=== PATIENT | male | born 1965 | race Caucasian/White ===

== ENCOUNTER 2020-07-12 18:17 | Inpatient (IN) | payer OTHER ==
--- NOTE | 2020-07-12 20:42 | BHS.RME ---
Substance Use & Tx History - Last Treatment Date of last treatment: 2 MONTHS AGO Treatment type: Substance Use Disorder (FIDE)
--- NOTE | 2020-07-12 20:48 | HP ---
CIWA Score Nausea/Vomitin Muscle Tremors: 3 Anxiety: 2 Agitation: 1-Slight > Activity Paroxysmal Sweats: 2 Orientation: 0-Oriented Tacttile Disturbances: 2-Mild Itch/Numbness/Burn Auditory Disturbances: 2-Mild Harshness/Frighten Visual Disturbances: 2-Mild Sensitivity Headache: 2-Mild CIWA-Ar Total Score: 18 - Admission Criteria OASAS Guidelines: Admission for Medically Managed Detox: Requires at least one of the followin. CIWA greater than 12 2. Seizures within the past 24 hours 3. Delirium tremens within the past 24 hours 4. Hallucinations within the past 24 hours 5. Acute intervention needed for co occurring medical disorder 6. Acute intervention needed for co occurring psychiatric disorder 7. Severe withdrawal that cannot be handled at a lower level of care (continued vomiting, continued diarrhea, abnormal vital signs) requiring intravenous medication and/or fluids 8. Admitting History and Physical - Admission Chief Complaint: ETOH DEPENDENCE History of Present Illness: THE PT. IS REQUESTING ADMISSION TO THE DETOX UNIT AND CAME FOR H AND PE History Source: Patient Limitations to Obtaining History: No Limitations - Past Medical History [employer]: Yes: Seizure Psych: Yes: Anxiety - Past Surgical History Additional Past Surgical History: SURGERY ON THE PROSTATE IN 2019 - Smoking History Smoking history: Current every day smoker Have you smoked in the past 12 months: Yes - Alcohol/Substance Use Hx Alcohol Use: Yes History of Substance Use: reports: None Date of Last Use: 07/12/20 - Social History Usual Living Arrangement: Yes: With Spouse History of Recent Travel: No Admission ROS BHS - HPI Chief Complaint: DEPENDENT ON ETOH ONLY ON 90 MGS. OF MMTP - LAST DOSE THIS AM Allergies/Adverse Reactions: Allergies Allergy/AdvReac Type Severity Reaction Status Date / Time No Known Allergies Allergy Verified 07/12/20 20:50 History of Present Illness: THE PT. IS REQUESTING ADMISSION TO THE DETOX UNIT AND CAME FOR H AND PE Exam Limitations: No Limitations - Ebola screening Have you traveled outside of the country in the last 21 days: No Have you had contact with anyone from an Ebola affected area: No Have you been sick,other than usual withdrawal symptoms: No Do you have a fever: No - Review of Systems Constitutional: See HPI, Malaise, Weakness EENT: reports: See HPI Respiratory: reports: No Symptoms reported, See HPI Cardiac: reports: No Symptoms Reported, See HPI GI: reports: See HPI, Nausea, Abdominal cramping : reports: See HPI Musculoskeletal: reports: See HPI, Muscle Pain, Muscle Weakness Integumentary: reports: See HPI, Lesions, Pruritus, Rash, Sweating Neuro: reports: See HPI, Headache, Pre-Existing Deficit, Tremors, Weakness Endocrine: reports: See HPI Hematology: reports: See HPI Psychiatric: reports: Judgement Intact, Orientated x3, Anxious, Depressed Other Systems: Reviewed and Negative Patient History - Patient Medical History Hx Seizures: Yes (X 4 - WITHDRAWAL SEIZURES) Hx Human Immunodeficiency Virus (HIV): No Hx Hepatitis C: No Other Medical History: ANXIETY DISORDER - Patient Surgical History Hx Genitourinary Surgery: Yes (ON THE PROSTATE IN 2019) - Smoking Cessation Smoking history: Current every day smoker Have you smoked in the past 12 months: Yes Aproximately how many cigarettes per day: 10 Hx Chewing Tobacco Use: No Initiated information on smoking cessation: Yes 'Breaking Loose' booklet given: 07/12/20 - Substance & Tx. History Hx Alcohol Use: Yes Hx Substance Use: No Substance Use Type: Alcohol Hx Substance Use Treatment: Yes - Substances abused Alcohol Substance route: Oral Frequency: Daily Amount used: 24 OZS. X 8 OF BEER AND LIQUOR 1 P/D Age of first use: 13 Date of last use: 07/12/20 Admission Physical Exam [facility] - Physical General Appearance: Yes: No Apparent Distress, Alcohol on Breath, Tremorous, Sweating, Anxious HEENTM: Yes: Hearing grossly Normal, Normocephalic, Normal Voice, THOMAS, Pharynx Normal Respiratory: Yes: Chest Non-Tender, Lungs Clear, Normal Breath Sounds, No Respiratory Distress, No Accessory Muscle Use Neck: Yes: No masses,lesions,Nodules, Supple, Trachea in good position Breast: Yes: Breast Exam Deferred, Axillae without masses Cardiology: Yes: Regular Rhythm, S1, S2, Tachycardia Abdominal: Yes: Normal Bowel Sounds, Non Tender, Soft, Protuberent Back: Yes: Normal Inspection, Decreased Range of Motion Musculoskeletal: Yes: full range of Motion, Gait Steady, Pelvis Stable, Muscle Pain, Muscle weakness Extremities: Yes: Normal Capillary Refill, Normal Range of Motion, Non-Tender, Tremors, Pedal Edema, Swelling 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 ECZEMA ON UPPER LIMBS++ - Diagnostic (1) EtOH dependence Current Visit: Yes Status: Chronic Qualifiers: Substance use status: uncomplicated Qualified Code(s): F10.20 - Alcohol dependence, uncomplicated (2) Nicotine dependence Current Visit: Yes Status: Chronic (3) Anxiety disorder Current Visit: Yes Status: Chronic Qualifiers: Anxiety disorder type: generalized anxiety disorder Qualified Code(s): F41.1 - Generalized anxiety disorder (4) Eczema Current Visit: Yes Status: Chronic Qualifiers: Eczema type: unspecified Qualified Code(s): L30.9 - Dermatitis, unspecified Cleared for Admission S - Detox or Rehab [facility] Level of Care: Medically Managed Detox Regimen/Protocol: Librium Inpatient Rehab Admission - Rehab Decision to Admit Inpatient rehab admission?: No
[2020-07-12] MEDS ORDERED: ONDANSETRON *ODT* 4 MG TABLET SL PRN (21:04)
[2020-07-12] MEDS ORDERED: MAGNESIUM CITRATE 300 ML BOTTLE PO PRN (21:04)
[2020-07-12] MEDS ORDERED: ACETAMINOPHEN 325 MG TABLET (FP) PO PRN ×2 (21:04)
[2020-07-12] MEDS ORDERED: IBUPROFEN 400 MG TABLET (FP) PO PRN (21:04)
[2020-07-12] MEDS ORDERED: BISMUTH SUBSALICYLATE 524 MG/30 ML UD PO PRN (21:04)
[2020-07-12] MEDS ORDERED: MAG HYDROX/AL HYDROX/SIMETH 30 ML UNIT-DOSE CUP PO PRN (21:04)
[2020-07-12] MEDS ORDERED: chlordiazePOXIDE HCL 25 MG CAPSULE PO PRN (21:04)
[2020-07-12] MEDS ORDERED: NICOTINE POLACRILEX 2 MG GUM BUC PRN (21:04)
[2020-07-12] MEDS ORDERED: MAGNESIUM HYDROX 2400MG/30ML ORAL SUSPENSION 30 ML CUP PO PRN (21:04)
[2020-07-12] MEDS ORDERED: METHOCARBAMOL 500 MG TABLET PO PRN (21:04)
[2020-07-12] MEDS ORDERED: MENTHOL/PHENOL 1 EACH UD MM PRN (21:04)
[2020-07-12] MEDS ORDERED: chlordiazePOXIDE HCL 25 MG CAPSULE PO ONE (22:00)
[2020-07-12] MEDS: GABAPENTIN 300 MG CAPSULE PO SCH (23:18)
[2020-07-12] MEDS: chlordiazePOXIDE HCL 25 MG CAPSULE PO SCH ×2 (23:18→23:37)
[2020-07-12] MEDS: MELATONIN 5 MG TABLETS PO SCH (23:19)
[2020-07-12] MEDS: hydrOXYzine PAMOATE 25 MG CAPSULE (FP) PO SCH (23:19)
[2020-07-12] MEDS: THIAMINE HCL 100 MG TABLET (FP) PO SCH (23:19)
[2020-07-12] MEDS: HYDROCORTISONE 2.5% TOPICAL CREAM 30 GM TUBE TP SCH (23:37)
[2020-07-13] MEDS: GABAPENTIN 300 MG CAPSULE PO SCH ×3 (06:35→22:03)
[2020-07-13] MEDS: chlordiazePOXIDE HCL 25 MG CAPSULE PO SCH ×4 (06:35→22:03)
[2020-07-13] MEDS: hydrOXYzine PAMOATE 25 MG CAPSULE (FP) PO SCH ×5 (06:35→22:03)
[2020-07-13] MEDS ORDERED: METHADONE HCL 10 MG TABLET PO ONE (07:34)
[2020-07-13] MEDS ORDERED: METHADONE HCL 10 MG TABLET ONE (07:57)
[2020-07-13] MEDS ORDERED: METHADONE HCL 40 MG DISPERSABLE TABLET ONE (07:58)
[2020-07-13] MEDS ORDERED: METHADONE 80 MG, METHADONE 10 MG PO ONE (08:00)
[2020-07-13] MEDS ORDERED: NICOTINE 7 MG/24 HOURS TOPICAL PATCH TD SCH (10:00)
[2020-07-13] MEDS: HYDROCORTISONE 2.5% TOPICAL CREAM 30 GM TUBE TP SCH ×2 (10:18→22:02)
[2020-07-13] MEDS: PRENATAL VITAMINS W/ FOLIC ACID TABLET (FP) PO SCH (10:19)
[2020-07-13] MEDS: NICOTINE 14 MG/24 HOURS TOPICAL PATCH TD SCH (10:19)
[2020-07-13 11:57] LABS: HEMATOCRIT 40.5 % (35.4-49); MCH 29.4 pg (25.7-33.7); MCHC 32.2 g/dl (32.0-35.9); MEAN CELL VOLUME 91.4 fl (80-96); MEAN PLT VOLUME 9.7 fl (7.5-11.1); PLATELET COUNT 139 K/MM3 (134-434); RBC 4.43 M/mm3 (4.00-5.60); RDW 15.5 % (11.9-15.9); WHITE BLOOD COUNT 4.9 K/mm3 (4.0-10.0)
[2020-07-13 12:12] LABS: BILIRUBIN,TOTAL 0.8 mg/dL (0.2-1); BLOOD UREA NITROGEN 11.6 mg/dL (7-18); CALCIUM 8.5 mg/dL (8.5-10.1); CREATININE 0.5 mg/dL (0.55-1.3); POTASSIUM 3.3 mmol/L (3.5-5.1); TOT PROT 6.3 g/dl (6.4-8.2)
[2020-07-13] MEDS ORDERED: MASKS NR ONE (12:54)
--- NOTE | 2020-07-13 14:11 | PN ---
S CIWA - CIWA Score Nausea/Vomitin-Mild Nausea/No Vomiting Muscle Tremors: 4-Moderate,w/Arms Extend Anxiety: 3 Agitation: 1-Slight > Activity Paroxysmal Sweats: 1-Minimal Palms Moist Orientation: 0-Oriented Tacttile Disturbances: 0-None Auditory Disturbances: 0-None Visual Disturbances: 1-Very Mild Sensitivity Headache: 2-Mild CIWA-Ar Total Score: 13 BHS Progress Note (SOAP) Subjective: 54 years old male was admitted on 07/12/20 for alcohol withdrawal sx management treating with librium detox regiment received methadone 90mg po today feels ok ate breakfast in room social with peers in day room Objective: 07/13/20 14:08 Vital Signs - 24 hr 07/12/20 07/12/20 07/13/20 21:59 22:48 06:37 Temperature 97.1 F L 97.3 F L 976.7 F H Pulse Rate 125 H 114 H 81 Respiratory 19 18 18 Rate Blood Pressure 174/97 H 169/77 161/91 O2 Sat by Pulse 97 99 95 Oximetry (%) 07/13/20 07/13/20 08:42 12:35 Temperature 98.2 F 96.8 F L Pulse Rate 86 93 H Respiratory 18 18 Rate Blood Pressure 136/82 138/85 O2 Sat by Pulse 97 Oximetry (%) 07/13/20 14:10 Laboratory Tests 07/13/20 07/13/20 07/13/20 07:30 07:30 07:30 WBC 4.9 RBC 4.43 Hgb 13.0 Hct 40.5 MCV 91.4 MCH 29.4 MCHC 32.2 RDW 15.5 Plt Count 139 MPV 9.7 Sodium 141 Potassium 3.3 L Chloride 103 Carbon Dioxide 30 Anion Gap 8 BUN 11.6 Creatinine 0.5 L Est GFR (CKD-EPI)AfAm 141.39 Est GFR (CKD-EPI)NonAf 122.00 Random Glucose 79 Calcium 8.5 Total Bilirubin 0.8 AST 23 ALT 32 Alkaline Phosphatase 108 Total Protein 6.3 L Albumin 3.0 L Syphilis Serology Non-reactive bp elevation initiate clonidine 0.1 mg po q6h prn Assessment: 07/13/20 14:11 alcohol withdrawal Plan: librium regiment
[2020-07-13] MEDS: cloNIDine HCL 0.1 MG TABLET PO PRN (17:15)
[2020-07-13] MEDS ORDERED: cloNIDine HCL 0.1 MG TABLET PO ONE (20:26)
[2020-07-13] MEDS: THIAMINE HCL 100 MG TABLET (FP) PO SCH (22:03)
[2020-07-13] MEDS: MELATONIN 5 MG TABLETS PO SCH (22:03)
[2020-07-14] MEDS: GABAPENTIN 300 MG CAPSULE PO SCH ×3 (05:31→22:10)
[2020-07-14] MEDS: hydrOXYzine PAMOATE 25 MG CAPSULE (FP) PO SCH ×5 (05:31→22:10)
[2020-07-14] MEDS: chlordiazePOXIDE HCL 25 MG CAPSULE PO SCH ×4 (05:31→22:10)
[2020-07-14] MEDS ORDERED: METHADONE 80 MG, METHADONE 10 MG PO ONE (09:15)
[2020-07-14] MEDS ORDERED: METHADONE HCL 40 MG DISPERSABLE TABLET ONE (09:24)
[2020-07-14] MEDS ORDERED: METHADONE HCL 10 MG TABLET ONE (09:24)
[2020-07-14] MEDS: NICOTINE 14 MG/24 HOURS TOPICAL PATCH TD SCH (09:31)
[2020-07-14] MEDS: HYDROCORTISONE 2.5% TOPICAL CREAM 30 GM TUBE TP SCH ×2 (09:32→22:12)
[2020-07-14] MEDS ORDERED: METHADONE HCL 10 MG TABLET PO ONE (10:00)
[2020-07-14] MEDS: PRENATAL VITAMINS W/ FOLIC ACID TABLET (FP) PO SCH (10:07)
--- NOTE | 2020-07-14 13:15 | PN ---
S CIWA - CIWA Score Nausea/Vomitin-Mild Nausea/No Vomiting Muscle Tremors: 2 Anxiety: 2 Agitation: 0-Normal Activity Paroxysmal Sweats: No Perspiration Orientation: 0-Oriented Tacttile Disturbances: 1-Very Mild Itch/Numbness Auditory Disturbances: 0-None Visual Disturbances: 2-Mild Sensitivity Headache: 2-Mild CIWA-Ar Total Score: 10 S Progress Note (SOAP) Subjective: 54 years old male was admitted on 07/12/20 for alcohol withdrawal sx management treating with librium detox regiment head bp elevation x 1 received methadone 90mg and librium 25mg po and neurontin 300mg Vital Signs - 24 hr 07/13/20 07/13/20 07/13/20 16:59 19:15 20:21 Temperature 97.5 F L 97.3 F L Pulse Rate 98 H 96 H 89 Respiratory 20 18 18 Rate Blood Pressure 163/108 H 164/102 H 186/119 H O2 Sat by Pulse 97 98 Oximetry (%) 07/13/20 07/13/20 07/13/20 20:32 21:27 23:19 Temperature 97.3 F L 97.8 F Pulse Rate 70 97 H 75 Respiratory 17 20 Rate Blood Pressure 129/83 169/96 135/83 O2 Sat by Pulse 99 95 Oximetry (%) 07/14/20 07/14/20 07/14/20 06:18 09:05 10:38 Temperature 97.8 F 97.3 F L Pulse Rate 61 101 H 82 Respiratory 16 16 18 Rate Blood Pressure 141/87 184/113 H 112/79 O2 Sat by Pulse 98 98 Oximetry (%) bp within acceptable range Objective: 07/14/20 13:17 Vital Signs - 24 hr 07/13/20 07/13/20 07/13/20 16:59 19:15 20:21 Temperature 97.5 F L 97.3 F L Pulse Rate 98 H 96 H 89 Respiratory 20 18 18 Rate Blood Pressure 163/108 H 164/102 H 186/119 H O2 Sat by Pulse 97 98 Oximetry (%) 07/13/20 07/13/20 07/13/20 20:32 21:27 23:19 Temperature 97.3 F L 97.8 F Pulse Rate 70 97 H 75 Respiratory 17 20 Rate Blood Pressure 129/83 169/96 135/83 O2 Sat by Pulse 99 95 Oximetry (%) 07/14/20 07/14/20 07/14/20 06:18 09:05 10:38 Temperature 97.8 F 97.3 F L Pulse Rate 61 101 H 82 Respiratory 16 16 18 Rate Blood Pressure 141/87 184/113 H 112/79 O2 Sat by Pulse 98 98 Oximetry (%) Laboratory Tests 07/13/20 07/13/20 07/13/20 07:30 07:30 07:30 WBC 4.9 RBC 4.43 Hgb 13.0 Hct 40.5 MCV 91.4 MCH 29.4 MCHC 32.2 RDW 15.5 Plt Count 139 MPV 9.7 Sodium 141 Potassium 3.3 L Chloride 103 Carbon Dioxide 30 Anion Gap 8 BUN 11.6 Creatinine 0.5 L Est GFR (CKD-EPI)AfAm 141.39 Est GFR (CKD-EPI)NonAf 122.00 Random Glucose 79 Calcium 8.5 Total Bilirubin 0.8 AST 23 ALT 32 Alkaline Phosphatase 108 Total Protein 6.3 L Albumin 3.0 L Syphilis Serology Non-reactive 07/14/20 13:17 covid pending Assessment: 07/14/20 13:17 alcohol withdrawal Plan: librium regiment
[2020-07-14] MEDS: MELATONIN 5 MG TABLETS PO SCH (22:10)
[2020-07-14] MEDS: THIAMINE HCL 100 MG TABLET (FP) PO SCH (22:10)
[2020-07-15] MEDS ORDERED: chlordiazePOXIDE HCL 10 MG CAPSULE PO PRN
[2020-07-15] MEDS ORDERED: METHADONE HCL 10 MG TABLET ONE (05:06)
[2020-07-15] MEDS ORDERED: METHADONE HCL 40 MG DISPERSABLE TABLET ONE (05:06)
[2020-07-15] MEDS: hydrOXYzine PAMOATE 25 MG CAPSULE (FP) PO SCH ×5 (05:10→22:10)
[2020-07-15] MEDS: chlordiazePOXIDE HCL 10 MG CAPSULE PO SCH ×4 (05:10→22:10)
[2020-07-15] MEDS: GABAPENTIN 300 MG CAPSULE PO SCH ×3 (05:10→22:09)
[2020-07-15] MEDS: METHADONE 80 MG, METHADONE 10 MG PO SCH (05:10)
[2020-07-15] MEDS ORDERED: METHADONE HCL 10 MG TABLET PO SCH (06:00)
[2020-07-15] MEDS: POTASSIUM CHLORIDE TABS 20 MEQ TABLET.ER (FP) PO SCH (10:13)
[2020-07-15] MEDS: NICOTINE 14 MG/24 HOURS TOPICAL PATCH TD SCH (10:14)
[2020-07-15] MEDS: PRENATAL VITAMINS W/ FOLIC ACID TABLET (FP) PO SCH (10:14)
[2020-07-15] MEDS: HYDROCORTISONE 2.5% TOPICAL CREAM 30 GM TUBE TP SCH ×2 (10:16→22:08)
--- NOTE | 2020-07-15 10:49 | PN ---
S CIWA - CIWA Score Nausea/Vomitin-Mild Nausea/No Vomiting Muscle Tremors: 2 Anxiety: 2 Agitation: 2 Paroxysmal Sweats: No Perspiration Orientation: 0-Oriented Tacttile Disturbances: 0-None Auditory Disturbances: 0-None Visual Disturbances: 0-None Headache: 1-Very Mild CIWA-Ar Total Score: 8 BHS Progress Note (SOAP) Subjective: alert,irritable,anxious,interrupted sleep,aching pain,chronic rash both hands eczema Objective: 07/15/20 16:43 Vital Signs Temperature 97.3 F L 07/15/20 12:32 Pulse Rate 76 07/15/20 12:32 Respiratory Rate 18 07/15/20 12:32 Blood Pressure 129/78 07/15/20 12:32 O2 Sat by Pulse Oximetry (%) 97 07/15/20 12:32 Assessment: 07/15/20 16:43 withdrawal symptom Plan: continue detox librium regimen,continue detox methadone regimen 90 mgs/day,k 3.3 ,kdur 20 mgs po daily for 3 days, hydrocortisone cream 0.5 % bid both eyes,repeat k in am
[2020-07-15] MEDS: HYDROCORTISONE 1% TOPICAL CREAM 30 GM TUBE TP SCH ×2 (13:43→22:09)
[2020-07-15] MEDS ORDERED: MASKS NR ONE (16:29)
[2020-07-15] MEDS: cloNIDine HCL 0.1 MG TABLET PO PRN (17:18)
[2020-07-15] MEDS: MELATONIN 5 MG TABLETS PO SCH (22:09)
[2020-07-15] MEDS: THIAMINE HCL 100 MG TABLET (FP) PO SCH (22:10)
[2020-07-16] MEDS ORDERED: METHADONE HCL 40 MG DISPERSABLE TABLET ONE (04:20)
[2020-07-16] MEDS ORDERED: METHADONE HCL 10 MG TABLET ONE (04:20)
[2020-07-16] MEDS: METHADONE 80 MG, METHADONE 10 MG PO SCH (06:25)
[2020-07-16] MEDS: GABAPENTIN 300 MG CAPSULE PO SCH ×3 (06:25→22:14)
[2020-07-16] MEDS: chlordiazePOXIDE HCL 10 MG CAPSULE PO SCH ×2 (06:25→18:38)
[2020-07-16] MEDS: hydrOXYzine PAMOATE 25 MG CAPSULE (FP) PO SCH ×5 (06:25→22:14)
[2020-07-16] MEDS: PRENATAL VITAMINS W/ FOLIC ACID TABLET (FP) PO SCH (10:29)
[2020-07-16] MEDS: POTASSIUM CHLORIDE TABS 20 MEQ TABLET.ER (FP) PO SCH (10:29)
[2020-07-16] MEDS: NICOTINE 14 MG/24 HOURS TOPICAL PATCH TD SCH (10:29)
[2020-07-16] MEDS: HYDROCORTISONE 1% TOPICAL CREAM 30 GM TUBE TP SCH ×2 (10:32→22:13)
[2020-07-16] MEDS: HYDROCORTISONE 2.5% TOPICAL CREAM 30 GM TUBE TP SCH ×2 (10:33→22:12)
--- NOTE | 2020-07-16 12:53 | PN ---
S CIWA - CIWA Score Nausea/Vomitin-No Nausea/No Vomiting Muscle Tremors: 2 Anxiety: 2 Agitation: 2 Paroxysmal Sweats: No Perspiration Orientation: 0-Oriented Tacttile Disturbances: 1-Very Mild Itch/Numbness Auditory Disturbances: 0-None Visual Disturbances: 0-None Headache: 1-Very Mild CIWA-Ar Total Score: 8 BHS Progress Note (SOAP) Subjective: alert,irritable,interrupted sleep,aching pain Objective: 07/16/20 17:05 Vital Signs Temperature 97.8 F 07/16/20 08:36 Pulse Rate 98 H 07/16/20 13:25 Respiratory Rate 18 07/16/20 08:36 Blood Pressure 154/101 H 07/16/20 13:25 O2 Sat by Pulse Oximetry (%) 99 07/16/20 08:36 Laboratory Results - last 24 hr 07/16/20 07:00 Potassium 4.5 Assessment: 07/16/20 17:05 withdrawal symptom Plan: continue detox librium regimen,d/c suman,continue methadone maintenance 90 mgs/day, discharge in am
[2020-07-16] MEDS: cloNIDine HCL 0.1 MG TABLET PO PRN (13:25)
[2020-07-16] MEDS: MELATONIN 5 MG TABLETS PO SCH (22:14)
[2020-07-16] MEDS: THIAMINE HCL 100 MG TABLET (FP) PO SCH (22:14)
[2020-07-17] MEDS ORDERED: chlordiazePOXIDE HCL 10 MG CAPSULE PO ONE (05:00)
[2020-07-17] MEDS ORDERED: METHADONE HCL 10 MG TABLET ONE (05:05)
[2020-07-17] MEDS ORDERED: METHADONE HCL 40 MG DISPERSABLE TABLET ONE (05:06)
[2020-07-17] MEDS: GABAPENTIN 300 MG CAPSULE PO SCH (05:32)
[2020-07-17] MEDS: hydrOXYzine PAMOATE 25 MG CAPSULE (FP) PO SCH ×2 (05:32→10:15)
[2020-07-17] MEDS: METHADONE 80 MG, METHADONE 10 MG PO SCH (05:32)
[2020-07-17] MEDS: cloNIDine HCL 0.1 MG TABLET PO PRN (05:36)
[2020-07-17 09:49] VITALS: BP 93/72; PULSE 87; TEMP 97.5
[2020-07-17] MEDS: PRENATAL VITAMINS W/ FOLIC ACID TABLET (FP) PO SCH (10:15)
[2020-07-17] MEDS: HYDROCORTISONE 1% TOPICAL CREAM 30 GM TUBE TP SCH (10:16)
[2020-07-17] MEDS: HYDROCORTISONE 2.5% TOPICAL CREAM 30 GM TUBE TP SCH (10:17)
[2020-07-17] MEDS: NICOTINE 14 MG/24 HOURS TOPICAL PATCH TD SCH (10:18)
--- NOTE | 2020-07-17 10:23 | DS ---
[facility] Detox Discharge Summary Admission Date: 07/12/20 Discharge Date: 07/17/20 - History Present History: Alcohol Dependence Additional Comments: alert.oriented x 3 lung clear on auscultation bilaterally abdomen soft,no pain,no tenderness,no distension eczema both hands chronic deformity of both big toenails detox completed no withdrawal symptom stable for discharge today to rehab total time of discharge 35 minutes left the unit in stable condition Pertinent Past History: eczema deformity of big toenails anxiety - Physical Exam Results Vital Signs: Vital Signs Temperature 97.5 F L 07/17/20 08:39 Pulse Rate 87 07/17/20 08:39 Respiratory Rate 18 07/17/20 08:39 Blood Pressure 93/72 07/17/20 08:39 O2 Sat by Pulse Oximetry (%) 98 07/17/20 06:27 Pertinent Admission Physical Exam Findings: withdrawal signs and symptom Vital Signs Temperature 97.5 F L 07/17/20 08:39 Pulse Rate 87 07/17/20 08:39 Respiratory Rate 18 07/17/20 08:39 Blood Pressure 93/72 07/17/20 08:39 O2 Sat by Pulse Oximetry (%) 98 07/17/20 06:27 Laboratory Last Values WBC 4.9 K/mm3 (4.0-10.0) 07/13/20 07:30 RBC 4.43 M/mm3 (4.00-5.60) 07/13/20 07:30 Hgb 13.0 GM/dL (11.7-16.9) 07/13/20 07:30 Hct 40.5 % (35.4-49) 07/13/20 07:30 MCV 91.4 fl (80-96) 07/13/20 07:30 MCH 29.4 pg (25.7-33.7) 07/13/20 07:30 MCHC 32.2 g/dl (32.0-35.9) 07/13/20 07:30 RDW 15.5 % (11.9-15.9) 07/13/20 07:30 Plt Count 139 K/MM3 (134-434) 07/13/20 07:30 MPV 9.7 fl (7.5-11.1) 07/13/20 07:30 Sodium 141 mmol/L (136-145) 07/13/20 07:30 Potassium 4.5 mmol/L (3.5-5.1) 07/16/20 07:00 Chloride 103 mmol/L (98-107) 07/13/20 07:30 Carbon Dioxide 30 mmol/L (21-32) 07/13/20 07:30 Anion Gap 8 MMOL/L (8-16) 07/13/20 07:30 BUN 11.6 mg/dL (7-18) 07/13/20 07:30 Creatinine 0.5 mg/dL (0.55-1.3) L 07/13/20 07:30 Est GFR (CKD-EPI)AfAm 141.39 07/13/20 07:30 Est GFR (CKD-EPI)NonAf 122.00 07/13/20 07:30 Random Glucose 79 mg/dL (74-106) 07/13/20 07:30 Calcium 8.5 mg/dL (8.5-10.1) 07/13/20 07:30 Total Bilirubin 0.8 mg/dL (0.2-1) 07/13/20 07:30 AST 23 U/L (15-37) 07/13/20 07:30 ALT 32 U/L (13-61) 07/13/20 07:30 Alkaline Phosphatase 108 U/L (45-117) 07/13/20 07:30 Total Protein 6.3 g/dl (6.4-8.2) L 07/13/20 07:30 Albumin 3.0 g/dl (3.4-5.0) L 07/13/20 07:30 Syphilis Serology Non-reactive (NONREACTIVE) 07/13/20 07:30 COVID-19 (EMELI) Not detected 07/12/20 22:16 Vital Signs Temperature 97.5 F L 07/17/20 08:39 Pulse Rate 87 07/17/20 08:39 Respiratory Rate 18 07/17/20 08:39 Blood Pressure 93/72 07/17/20 08:39 O2 Sat by Pulse Oximetry (%) 98 07/17/20 06:27 - Treatment Hospital Course: Detox Protocol Followed, Detoxed Safely, Responded well, Discharged Condition Good, Rehab Referral Accepted Patient has Accepted a Re[facility] Referral to: [facility] - Medication Discharge Medications: Ambulatory Orders Gabapentin [Neurontin -] 300 mg PO TID 07/12/20 Methadone [Dolophine -] 90 mg PO DAILY 07/12/20 - Diagnosis (1) Alcohol dependence with uncomplicated withdrawal Status: Acute (2) Neuropathy Status: Acute (3) Methadone maintenance therapy patient Status: Acute (4) Acquired deformity of toenail Status: Acute (5) Eczema Status: Acute - AMA Did Patient Leave Against Medical Advice: No
--- NOTE | 2020-07-17 10:23 | PN ---
[facility] CIWA - CIWA Score Nausea/Vomitin-No Nausea/No Vomiting Muscle Tremors: None Anxiety: 1-Mildly Anxious Agitation: 0-Normal Activity Paroxysmal Sweats: No Perspiration Orientation: 0-Oriented Tacttile Disturbances: 0-None Auditory Disturbances: 0-None Visual Disturbances: 0-None Headache: 0-None Present CIWA-Ar Total Score: 1 S Progress Note (SOAP) Subjective: alert,no complaint Objective: 07/17/20 11:49 Vital Signs Temperature 97.5 F L 07/17/20 08:39 Pulse Rate 87 07/17/20 08:39 Respiratory Rate 18 07/17/20 08:39 Blood Pressure 93/72 07/17/20 08:39 O2 Sat by Pulse Oximetry (%) 98 07/17/20 06:27 Assessment: 07/17/20 11:49 detox completed,no withdrawal symptom Plan: stable for discharge today,follow up with after care program [facility] as arrangement
== END 2020-07-17 11:18 | disposition other institution (70) | DRG 773 ==
LOC: YASAS 18:17 → Y3N 21:51
PROVIDERS: ADMIT Allergy & Immunology; ATTEND Allergy & Immunology
PROC: HZ2ZZZZ Detoxification Services for Substance Abuse Treatment (ICD-10-PCS; principal; 2020-07-12)
DX: F10.230 Alcohol dependence with withdrawal, uncomplicated (principal); F11.20 Opioid dependence, uncomplicated; F17.210 Nicotine dependence, cigarettes, uncomplicated; F41.1 Generalized anxiety disorder; G62.9 Polyneuropathy, unspecified; L40.9 Psoriasis, unspecified; L60.8 Other nail disorders; Z86.69 Personal history of other diseases of the nervous system and sense organs
CPT/HCPCS: 36415; 80053; 84132; 85027; 86780; J0735; U0003